=== PATIENT | female | born 1990 | race Two or more races ===

== ENCOUNTER 2019-10-31 10:45 | Observation (INO) | payer OTHER ==
[~2019-10-31] VITALS: Ht 163 cm; Wt 71.2 kg
[2019-10-31 11:29] VITALS: BP 112/68
[2019-10-31] MEDS ORDERED: PREN-217 PO (11:30)
[2019-10-31] MEDS ORDERED: LEVO50 PO (11:31)
== END 2019-10-31 14:40 | disposition home or self-care (01) ==
LOC: 4S 10:45
PROVIDERS: ADMIT Obstetrics & Gynecology; ATTEND Obstetrics & Gynecology
DX: Z34.90 Encounter for supervision of normal pregnancy, unspecified, unspecified trimester (principal); Z3A.40 40 weeks gestation of pregnancy
CPT/HCPCS: 59025; 81001; G0378

== ENCOUNTER 2019-11-01 00:35 | Inpatient (IN) | payer OTHER ==
[~2019-11-01] VITALS: Ht 162.6 cm; Wt 72.6 kg
[~2019-11-01 00:35] MED LIST: LEVO50 PO; PREN-217 PO
[2019-11-01] MEDS ORDERED: RINGERS SOLUTION,LACTATED 1,000 ML IV PRN (01:11)
[2019-11-01] MEDS ORDERED: METOCLOPRAMIDE HCL 5 MG/ML 2 ML VIAL IVP PRN (01:15)
[2019-11-01] MEDS ORDERED: CITRIC ACID/SODIUM CITRATE 30 ML SOLUTION UDCUP PO PRN (01:15)
[2019-11-01] MEDS ORDERED: DINOPROSTONE 10 MG VAGINAL SUPPOSITORY VG ONE (02:00)
[2019-11-01 02:01] LABS: BASOPHILS % (AUTO) 0.5 % (0.0-2.0); EOSINOPHILS % (AUTO) 0.9 % (1.0-6.0); HEMOGLOBIN 13.7 g/dL (12.0-16.0); LYMPHOCYTES % (AUTO) 17.9 % (22.0-44.0); MEAN CORPUSCULAR HEMOGLOBIN 32.4 pg (26.0-34.0); MEAN CORPUSCULAR HGB CONC 34.2 G/dL (31.0-37.0); MEAN CORPUSCULAR VOLUME 95 fL (80-100); MONOCYTES # (AUTO) 0.7 K/uL (0.1-1.0); MONOCYTES % (AUTO) 6.8 % (2.0-9.0); NEUTROPHILS # (AUTO) 8.1 K/uL (1.8-7.7); NEUTROPHILS % (AUTO) 73.9 % (40.0-70.0); PLATELET COUNT (AUTO)-OB 145 K/uL (150-450); RED BLOOD CELL COUNT(AUTO) 4.22 MIL/uL (4.00-5.20); RED CELL DISTRIBUTION WIDTH 14.1 % (11.5-14.5)
[2019-11-01 03:13] VITALS: BP 111/62
[2019-11-01] MEDS ORDERED: OXYGEN THERAPY IH SCH (08:00)
[2019-11-01] MEDS: RINGERS SOLUTION,LACTATED 1,000 ML IV SCH ×2 (10:37→18:32)
[2019-11-01] MEDS ORDERED: EPHEDrine SULFATE 50 MG/ML VIAL IVP ONE (12:00)
[2019-11-01] MEDS ORDERED: OXYTOCIN 10 UNITS/ML VIAL IM ONE (12:00)
[2019-11-01] MEDS ORDERED: AMPICILLIN SODIUM 2 GM/NS 100 ML IV ONE (12:30)
[2019-11-01] MEDS: MISOPROSTOL 25 MCG TABLET PO SCH ×2 (15:57→20:10)
[2019-11-01] MEDS: AMPICILLIN SODIUM 1 GM/NS 50 ML IV SCH ×2 (19:21→23:00)
[2019-11-02] MEDS: MISOPROSTOL 25 MCG TABLET PO SCH ×2 (00:05→04:11)
[2019-11-02] MEDS: RINGERS SOLUTION,LACTATED 1,000 ML IV SCH ×3 (03:08→19:56)
[2019-11-02] MEDS: AMPICILLIN SODIUM 1 GM/NS 50 ML IV SCH ×2 (03:08→07:02)
[2019-11-02] MEDS: LEVOTHYROXINE SODIUM 50 MCG TABLET PO SCH (07:32)
[2019-11-02] MEDS ORDERED: OXYTOCIN 30 UNITS/LACT RINGERS 500 ML IV PRN (09:45)
[2019-11-02] MEDS ORDERED: RINGERS SOLUTION,LACTATED 1,000 ML IV ONE (13:18)
[2019-11-02] MEDS ORDERED: METOCLOPRAMIDE HCL 5 MG/ML 2 ML VIAL IVP ONE (13:30)
[2019-11-02] MEDS ORDERED: METHYLERGONOVINE MALEATE 0.2 MG/ML VIAL IM ONE (13:30)
[2019-11-02] MEDS ORDERED: CITRIC ACID/SODIUM CITRATE 30 ML SOLUTION UDCUP PO ONE (13:30)
[2019-11-02] MEDS ORDERED: MIDAZOLAM HCL 2 MG/2 ML VIAL ONE (13:41)
[2019-11-02] MEDS ORDERED: CeFAZolin 2 GM/DEXTROSE 50 ML IV ONE (13:41)
[2019-11-02] MEDS ORDERED: FentaNYL CITRATE-PF 100 MCG/2 ML VIAL ONE (13:41)
[2019-11-02] MEDS ORDERED: KETOROLAC TROMETHAMINE 30 MG/ML VIAL ONE (13:42)
[2019-11-02] MEDS ORDERED: DEXAMETHASONE SOD PHOS 4 MG/ML VIAL ONE (13:42)
[2019-11-02] MEDS ORDERED: MORPHINE SULFATE/PF 1 MG/ML 10 ML AMP ONE (13:42)
[2019-11-02] MEDS ORDERED: BUPIVACAINE HCL/DEX-WATER/PF 0.75% 2 ML AMP ONE (13:42)
[2019-11-02] MEDS ORDERED: ONDANSETRON HCL 4 MG/2 ML VIAL ONE (13:42)
[2019-11-02] MEDS ORDERED: DiphenhydrAMINE HCL 50 MG/ML VIAL IVP PRN (14:00)
[2019-11-02] MEDS ORDERED: ACETAMINOPHEN 1000 MG/ISO-OSM 100 ML IV ONE ×2 (14:00→15:55)
[2019-11-02] MEDS ORDERED: NALOXONE HCL 0.4 MG/ML VIAL IVP PRN (14:00)
[2019-11-02] MEDS ORDERED: ONDANSETRON HCL 4 MG/2 ML VIAL IVP PRN ×2 (14:00→21:00)
[2019-11-02] MEDS ORDERED: OxyCODONE HCL/ACETAMINOPHEN 5-325 MG TABLET PO PRN (14:00)
[2019-11-02] MEDS ORDERED: KETOROLAC TROMETHAMINE 30 MG/ML VIAL IVP SCH (18:00)
[2019-11-02] MEDS ORDERED: LANOLIN 7 GM OINTMENT TP PRN (18:15)
[2019-11-02] MEDS ORDERED: OXYGEN THERAPY IH SCH ×2 (20:00)
[2019-11-02] MEDS: KETOROLAC TROMETHAMINE 30 MG/ML VIAL IVP SCH (21:08)
[2019-11-02] MEDS: MAGNESIUM HYDROXIDE SUSPENSION 30 ML UDCUP PO PRN (21:09)
[2019-11-03] MEDS: KETOROLAC TROMETHAMINE 30 MG/ML VIAL IVP SCH (04:04)
[2019-11-03] MEDS: RINGERS SOLUTION,LACTATED 1,000 ML IV SCH ×2 (04:05→12:12)
[2019-11-03 05:52] LABS: BASOPHILS % (AUTO) 0.2 % (0.0-2.0); EOSINOPHILS % (AUTO) 0.1 % (1.0-6.0); HEMATOCRIT 32.9 % (36-46); HEMOGLOBIN 11.1 g/dL (12.0-16.0); LYMPHOCYTES # (AUTO) 1.9 K/uL (1.0-4.8); LYMPHOCYTES % (AUTO) 10.3 % (22.0-44.0); MEAN CORPUSCULAR HEMOGLOBIN 32.1 pg (26.0-34.0); MEAN CORPUSCULAR HGB CONC 33.7 G/dL (31.0-37.0); MEAN CORPUSCULAR VOLUME 96 fL (80-100); MONOCYTES # (AUTO) 1.3 K/uL (0.1-1.0); MONOCYTES % (AUTO) 7.2 % (2.0-9.0); NEUTROPHILS % (AUTO) 82.2 % (40.0-70.0); PLATELET COUNT (AUTO)-OB 152 K/uL (150-450); RED BLOOD CELL COUNT(AUTO) 3.45 MIL/uL (4.00-5.20); RED CELL DISTRIBUTION WIDTH 14.2 % (11.5-14.5)
[2019-11-03] MEDS: LEVOTHYROXINE SODIUM 50 MCG TABLET PO SCH (06:07)
[2019-11-03] MEDS: MAGNESIUM HYDROXIDE SUSPENSION 30 ML UDCUP PO PRN ×2 (10:12→21:19)
[2019-11-03] MEDS ORDERED: ACETAMINOPHEN/CODEINE 300-30 MG TABLET PO PRN ×2 (18:15)
[2019-11-03] MEDS: IBUPROFEN 800 MG TABLET PO PRN (23:45)
[2019-11-04] MEDS: LEVOTHYROXINE SODIUM 50 MCG TABLET PO SCH (06:45)
[2019-11-04] MEDS: IBUPROFEN 800 MG TABLET PO PRN ×2 (16:05→21:19)
[2019-11-04] MEDS: MAGNESIUM HYDROXIDE SUSPENSION 30 ML UDCUP PO PRN (21:19)
[2019-11-05] MEDS: MAGNESIUM HYDROXIDE SUSPENSION 30 ML UDCUP PO PRN (08:19)
[2019-11-05] MEDS ORDERED: PERCT PO (08:31)
[2019-11-05] MEDS ORDERED: IBUP-2071 PO (08:33)
[2019-11-05] MEDS ORDERED: DOCU-275 PO (08:34)
[2019-11-05] MEDS ORDERED: FERR-89 PO (08:35)
[2019-11-05] MEDS: LEVOTHYROXINE SODIUM 50 MCG TABLET PO SCH (09:28)
[2019-11-05] MEDS: IBUPROFEN 800 MG TABLET PO PRN (09:48)
== END 2019-11-05 14:45 | disposition home or self-care (01) | DRG 788 ==
LOC: 4S 00:35 → OBSVTOIN 00:35 → 4S 11-02 16:27
PROVIDERS: ADMIT Obstetrics & Gynecology; ATTEND Obstetrics & Gynecology
PROC: 10D00Z1 Extraction of Products of Conception, Low, Open Approach (ICD-10-PCS; principal; 2019-11-02)
DX: O99.284 Endocrine, nutritional and metabolic diseases complicating childbirth (principal); O61.0 Failed medical induction of labor; E03.9 Hypothyroidism, unspecified; Z37.0 Single live birth; Z3A.40 40 weeks gestation of pregnancy
CPT/HCPCS: 86850; 86900; 86901; 87081; J0131; J0290; J0690; J1100; J1885; J2250; J2405; J2590; J2765; J3010; J3490; J7120